=== PATIENT | female | born 1950 ===

== ENCOUNTER 2018-01-31 07:43 | Day surgery (SDC) | payer OTHER ==
[2015-04-15 08:05] VITALS: BMI 29.4
[2018-01-31] MEDS ORDERED: Lactated Ringer's 1,000 ML IV ONE ×2 (08:35→10:30)
[2018-01-31 08:49] VITALS: TEMP 96.9
[2018-01-31] MEDS ORDERED: Lactated Ringer's 500 ML IV ONE (09:53)
[2018-01-31] MEDS ORDERED: Propofol 10 mg/ml Inj (20 ML) ONE ×2 (09:55→10:11)
[2018-01-31 10:03] VITALS: O2SAT 100
[2018-01-31 12:12] VITALS: BP 125/73; PULSE 68; RESP 15
== END 2018-01-31 11:45 | disposition home or self-care (01) ==
LOC: C.ENDO 07:43
PROVIDERS: ATTEND Internal Medicine Gastroenterology
DX: Z12.11 Encounter for screening for malignant neoplasm of colon (principal); Z86.010 Personal history of colon polyps; D12.4 Benign neoplasm of descending colon; K57.30 Diverticulosis of large intestine without perforation or abscess without bleeding; K64.8 Other hemorrhoids
CPT/HCPCS: 45385; 88305; J2704; J7120